=== PATIENT | female | born 1995 | race Caucasian/White ===

== ENCOUNTER 2021-04-07 01:12 | Emergency (ER) | payer OTHER ==
[~2021-04-07] VITALS: Ht 165 cm; Wt 75.0 kg
--- NOTE | 2021-04-07 02:46 | ED Integumentary General ---
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 She has the spider of concern with her that does look like a brown recluse. Her concern was she has had infection after wound from spider bite previously so wanted to get checked out. Denies other injuries or concerns currently. Timing/Duration: just prior to arrival (Approximately 2 hours ago) Severity: mild Location: extremities (Left upper thigh) Possible Cause: insect bite Associated Symptoms: other (2 x 2 centimeter area of induration) Allergies and Home Medications Patient Home Medication List Home Medication List Reviewed: Yes Review of Systems Review of Systems Constitutional: see HPI; No chills, No fever Respiratory: no symptoms reported Cardiovascular: no symptoms reported Skin: see HPI, change in color, lesions Past Ybjjnjn-Etcmau-Qkohfx Hx Patient Social History Tobacco Use?: No Substance use?: No Alcohol Use?: No Pt feels they are or have been: No Immunizations Up To Date Influenza Vaccine Up-to-Date: No; Not Current First/Initial COVID19 Vaccinat: DECEMBER 2020 Second COVID19 Vaccination Rolf: DECEMBER 2020 COVID19 Vaccine Brick Picker: [email or web address] Past Medical History Surgery/Hospitalization HX: DEPRESSION, NIGHTMARES Surgeries: No Cardiac: No Neurological: No Last Menstrual Period: Apr 03, 2021 Integumentary: Yes (Staph infection) Physical Exam Vital Signs Vital Signs - First Documented 04/07/21 01:37 Temp 36.8 Pulse 100 Resp 16 B/P (MAP) 129/87 (101) Pulse Ox 98 O2 Delivery Room Air Capillary Refill : Less Than 3 Seconds General Appearance: WD/WN, no apparent distress Cardiovascular: regular rate, rhythm, no murmur Respiratory: lungs clear, normal breath sounds Skin: warm/dry Skin Problem Location: lower extremities Skin Problem Character: erythema, other (2 x 2 centimeter area of induration to the left upper outer thigh without pustule) Progress/Results/Core Measures Results/Orders Vital Signs/I&O 04/07/21 01:37 Temp 36.8 Pulse 100 Resp 16 B/P (MAP) 129/87 (101) Pulse Ox 98 O2 Delivery Room Air Blood Pressure Mean: 101 Progress Progress Note : Progress Note Seen and evaluated. Patient brought in spider that clearly looks like brown patricialuse. This may be a brown recluse spider bite. I did give her information regarding brown recluse spider bites and supportive therapy. Discharged home with return precautions. Verbalized understanding instructions and agreement with plan. Departure Impression Primary Impression: Brown recluse spider bite Qualified Codes: T63.334A - Toxic effect of venom of brown recluse spider, undetermined, initial encounter Disposition: HOME, SELF-CARE Condition: Stable Departure-Patient Inst. Decision time for Depature: 02:44 Patient Instructions: Spider Bites Add. Discharge Instructions: All discharge instructions reviewed with patient and/or family. Voiced understanding. You may use topical hydrocortisone cream or Benadryl cream to reduce inflammat ion. If wound or ulceration occurs, you may use antibiotic ointment and Band- Aid over wound to prevent secondary infection. Return for worse pain, foul- smelling drainage, red streaks from the wound, curtain of discoloration below the wound, weakness, breathing problems or other concerns as needed. Follow-up with your doctor as needed in a few days for recheck. RANJEET FRANK MD Apr 07, 2021 02:46
[2021-04-07 02:53] VITALS: BP 104/77
== END 2021-04-07 02:53 | disposition home or self-care (01) ==
LOC: EDUNIT# 01:12 → ER 01:15
DX: T63.331A Toxic effect of venom of brown recluse spider, accidental (unintentional), initial encounter (principal)
CPT/HCPCS: 99281